=== PATIENT | male | born 1995 | race Caucasian/White ===

== ENCOUNTER 2024-12-15 08:20 | Emergency (ER) | payer OTHER, SELFPAY ==
[2024-12-15] VITALS (10 sets, daily range): BP systolic 121–127; BP diastolic 64–91; PULSE 55–86; RESP 16; TEMP 36.4; O2SAT 98–100; BMI 26.9
--- NOTE | 2024-12-15 08:42 | CRLHL7_ITS ---
For Patients: As a result of the Century Cures Act, medical imaging exams and procedure reports are released immediately into your electronic medical record. You may view this report before your referring provider. If you have questions, please contact your health care provider. INDICATION: Diffuse abdominal pain for the last 2 weeks. COMPARISON: None. TECHNIQUE: CT abdomen and pelvis with intravenous contrast; coronal and sagittal reformats; maximum intensity projections; 90 cc of Isovue-370 contrast was injected IV. FINDINGS: No nodules thru the lung bases. No evidence of pleural effusion. No focal hepatic or splenic pathology. No pancreatic pathology. Gallbladder is unremarkable. No adrenal pathology. No kidney stones or obstructive uropathy. No retroperitoneal lymphadenopathy. No evidence of abdominal or pelvic ascites. Normal appendix. CT of the pelvis is unremarkable. IMPRESSION: Negative CT abdomen and pelvis with intravenous contrast. Please note that all CT scans at this facility use dose modulation, iterative reconstruction, and/or weight-based dosing when appropriate to reduce radiation dose to as low as reasonably achievable. Dictated by Sarah Rocha MD @ 12/15/2024 9:22:03 AM (Electronically Signed)
--- NOTE | 2024-12-15 08:43 | ED_ITS ---
HPI - General Adult General Chief complaint: Abdominal Pain Stated complaint: Abdominal pain Time Seen by Provider: 12/15/24 08:24 History of Present Illness HPI narrative: [age] white male who has had intermittent abdominal discomfort and loose stools of a greenish color for the last couple of weeks. He reports he has about 1 bowel movement a day but is lose he gets cramping around the time of the bowel movement. He has not noticed any blood. He says that could be dark green to [place] green. Patient has had no nausea or vomiting. He has been healthy in the past no chronic health issues. He has not had any fever, chills, night sweats, weight loss. He has been eating and drinking but maybe less so than normal. He has had no chest pain, no breathing problem. He presents to the ED for evaluation. No recent travel. No recent antibiotics. Related Data Home Medications ?Medication ?Instructions ?Recorded ?Confirmed No Known Home Medications 12/15/2411/27 Allergies Allergy/AdvReac Type Severity Reaction Status Date / Time No Known Drug Allergies Allergy Verified 12/15/24 08:35 Review of Systems Status of ROS: Reports: 6 or more systems reviewed and unremarkable except as noted in History and below PFSH PFS Social History Smoking Status: Former smoker What tobacco products do you use: cigarettes Smoking packs per day: 1.5 Smoking cigarettes per day: 30.0 Years smoked: 13 Smoking pack-years: 19.50 Do you use any of these nicotine containing products: Other Second hand tobacco smoke exposure: No How often do you have a drink containing alcohol: 2-4 times a month AUDIT-C Alcohol total score: 2 Non-prescribed substance use: marijuana (any form) service: No Exam Const: Vital Signs, click to edit/add: Vital Signs - 24 hr 12/15/24 08:29 12/15/24 08:51 12/15/24 08:52 Temperature 97.5 F L Pulse Rate 72 67 Pulse Rate [Pulse Oximeter] 86 Respiratory Rate 16 Blood Pressure 127/83 Blood Pressure [Ri ght Upper Arm] 121/72 Pulse Oximetry 98 98 99 Oxygen Delivery Me thod Room Air 12/15/24 09:00 12/15/24 09:40 12/15/24 09:42 Temperature Pulse Rate 63 55 L 62 Pulse Rate [Pulse Oximeter] Respiratory Rate 16 Blood Pressure 125/64 Blood Pressure [Ri ght Upper Arm] Pulse Oximetry 100 98 98 Oxygen Delivery Me thod 12/15/24 09:45 12/15/24 10:00 12/15/24 10:02 Temperature Pulse Rate 57 L 64 59 L Pulse Rate [Pulse Oximeter] Respiratory Rate Blood Pressure 125/91 H Blood Pressure [Ri ght Upper Arm] Pulse Oximetry 99 99 99 Oxygen Delivery Me thod 12/15/24 10:15 Temperature Pulse Rate 69 Pulse Rate [Pulse Oximeter] Respiratory Rate Blood Pressure Blood Pressure [Ri ght Upper Arm] Pulse Oximetry 99 Oxygen Delivery Me thod Course Vital Signs Vital signs: Initial Vital Signs Temperature 97.5 F L 12/15/24 08:29 Temperature Source Temporal Artery Scan 12/15/24 08:29 Pulse Rate 86 12/15/24 08:29 Pulse Rhythm Regular 12/15/24 08:29 Respiratory Rate 16 12/15/24 08:29 Blood Pressure 121/72 12/15/24 08:29 Blood Pressure Mean 88 12/15/24 08:29 Blood Pressure Position Sitting 12/15/24 08:29 Pulse Oximetry 98 12/15/24 08:29 Oxygen Delivery Method Room Air 12/15/24 08:29 Vital Signs Temperature 97.5 F L 12/15/24 08:29 Pulse Rate 86 12/15/24 08:29 Respiratory Rate 16 12/15/24 08:29 Blood Pressure 121/72 12/15/24 08:29 Pulse Oximetry 98 12/15/24 08:29 Oxygen Delivery Method Room Air 12/15/24 08:29 Temperature 97.5 F L 12/15/24 08:29 Pulse Rate 69 12/15/24 10:15 Respiratory Rate 16 12/15/24 09:42 Blood Pressure 125/91 H 12/15/24 10:02 Pulse Oximetry 99 12/15/24 10:15 Oxygen Delivery Method Room Air 12/15/24 08:29 Medications Administered Medications: Discontinued Medications Generic Name Dose Route Start Last Admin Trade Name Freq PRN Reason Stop Dose Admin Sodium Chloride 1,000 mls @ 6,000 mls/hr 12/15/24 08:45 12/15/24 08:56 0.9 % Sodium Chloride 1000 Ml IV 12/15/24 08:54 6,000 mls/hr .Q10M [facility] Administration Medical Decision Making [facility] Narrative Medical decision making narrative: [age] white male with 2 week history of intermittent abdominal cramping and diarrhea, abnormal colored stools and of green color. At this point I think would be hollins to get lab studies, give him IV fluid. Will also check stool culture, O&P, C diff. if he can not leave the samples here will collect them at home. Will rehydrate him. Will get a CT scan of his abdomen pelvis. This would be to rule out diverticulitis, colitis, inflammatory bowel disease. Patient has had no abdominal surgery. He has had no recent travel. No recent antibiotics. Would recommend the above-mentioned treatment course and disposition pending findings. Addendum 10:15 a.m.: The patient is blood work looks reassuring, his CT scan of the abdomen pelvis showed no abnormality, specifically no pancreatitis. His lab studies are reassuring other than his amylase is minimally elevated and his lipase is 1991. I suspect that is from an enteritis. This is as his pancreas looks normal and a CT. I think could be appropriate to hydrate him as we did, collect stool for O and P, culture, C diff. light activity, yogurt by mouth to eat, Tylenol Advil as needed. Recheck with his regular doctor next 2-3 days. Light duty in the interim. Lab Data Labs: Lab Results 12/15/24 Range/Units 09:00 WBC 6.93 (4.50-11.00) K/uL RBC 5.13 (4.30-5.90) m/uL Hgb 15.4 (13.5-17.5) gm/dL Hct 45.9 (37.0-53.0) % MCV 90 (80-100) fL MCH 30 (26-34) pg MCHC 34 (32-36) gm/dL RDW Coeff of Kalia 12.4 (11.5-15.5) % Plt Count 175 (140-440) K/uL Neut % (Auto) 56.3 (42.0-72.0) % Lymph % (Auto) 20.9 (20-44) % [place] % (Auto) 7.5 (0.0-11.0) % Eos % (Auto) 14.3 H (0.0-7.0) % Baso % (Auto) 0.9 (0.0-3.0) % Neut # (Auto) 3.90 (1.7-7.0) K/uL Lymph # (Auto) 1.45 (0.90-2.90) K/uL [place] # (Auto) 0.50 (0.00-0.90) K/UL Eos # (Auto) 1.00 H (0.00-0.50) K/uL Baso # (Auto) 0.06 (0.00-0.30) K/uL Abs Immat Gran (auto) 0.01 (0.00-0.30) K/uL Imm/Tot Granulo (auto) 0.1 % Sodium 136 (135-149) mmol/L Potassium 3.9 (3.6-5.1) mmol/L Chloride 103 (96-114) mmol/L Carbon Dioxide 27 (20-32) mmol/L Anion Gap 6 L (7-15) mEq/L BUN 23 (5-24) mg/dL Creatinine 1.1 (0.5-1.5) mg/dL Estimated Creat Clear 97.30 Estimated GFR 92 ml/min Glucose 104 (60-115) mg/dL Lactate 1.0 (0.5-1.9) mmol/L Calcium 9.2 (8.4-10.6) mg/dL Total Bilirubin 0.3 (0.1-1.5) mg/dL Direct Bilirubin 0.1 (0.0-0.5) mg/dL AST 28 (12-35) U/L ALT 14 (4-50) U/L Alkaline Phosphatase 31 L (40-150) U/L C-Reactive Protein < 0.5 L (0.5-1.0) mg/dL Total Protein 6.8 (6.0-8.3) g/dL Albumin 4.2 (3.3-5.0) g/dL Amylase 125 H (18-89) U/L Lipase 1991 H (23-300) U/L Discharge Plan Discharge Clinical Impression: Diarrhea, Abdominal cramping Patient Disposition: Home, Self-Care Condition: Improved Additional Instructions: Recommend light activity for a couple of days, eat yogurt regularly as well as normal diet, collect the stool samples at home and bring them back to the hospital lab. Recheck with your regular doctor next 2-3 days, return to the ED sooner problems or concerns. Activity Level: Light activity Activity Detail: Light activity for 2 days Discharge Diet: Regular Prescriptions: No Action No Known Home Medications Follow Up/Referrals: Torrey Aguayo MD [Primary Care Provider, Internal Medicine] Stand Alone Forms: [employer] Info Instructions
[2024-12-15 09:12] LABS: Hematocrit* 45.9 % (37.0-53.0); Hemoglobin* 15.4 gm/dL (13.5-17.5); Immature Granulocytes Abs Auto 0.01 K/uL (0.00-0.30); Immature Granulocytes Pct Auto 0.1 %; Lymphocytes Absolute Auto 1.45 K/uL (0.90-2.90); Mean Corpuscular HGB Conc 34 gm/dL (32-36); Mean Corpuscular Hemoglobin 30 pg (26-34); Mean Corpuscular Volume 90 fL (80-100); RDW Coefficient of Variation % 12.4 % (11.5-15.5); Red Blood Count* 5.13 m/uL (4.30-5.90); White Blood Count* 6.93 K/uL (4.50-11.00)
[2024-12-15 09:13] LABS: Lactate* 1.0 mmol/L (0.5-1.9)
[2024-12-15 09:14] LABS: Slide Review Reflex No
[2024-12-15 09:29] LABS: Albumin* 4.2 g/dL (3.3-5.0); Chloride* 103 mmol/L (96-114); Potassium* 3.9 mmol/L (3.6-5.1); Sodium* 136 mmol/L (135-149)
[2024-12-15 09:32] LABS: Alanine Aminotransferase* 14 U/L (4-50); Alkaline Phosphatase* 31 U/L (40-150); Anion Gap 6 mEq/L (7-15); Aspartate Amino Transferase* 28 U/L (12-35); Bilirubin Direct* 0.1 mg/dL (0.0-0.5); Bilirubin Total* 0.3 mg/dL (0.1-1.5); Blood Urea Nitrogen* 23 mg/dL (5-24); Calcium* 9.2 mg/dL (8.4-10.6); Carbon Dioxide* 27 mmol/L (20-32); Creatinine* 1.1 mg/dL (0.5-1.5); Est. Creatinine Clearance* 97.30; Estimated Glomerular Filt Rate 92 ml/min; Glucose* 104 mg/dL (60-115); Total Protein* 6.8 g/dL (6.0-8.3)
[2024-12-15 12:12] LABS: C.Difficile Negative (Negative); CDIFFEPI 027 PRESUMPTIVE NEGATIVE (Negative)
[2024-12-19 00:28] LABS: Ova and Parasite, Fecal Negative (Negative)
== END 2024-12-15 10:26 | disposition home or self-care (01) ==
PROVIDERS: Emergency Provider Family Medicine; PCP Internal Medicine
DX: R10.9 Unspecified abdominal pain (principal); R19.7 Diarrhea, unspecified
CPT/HCPCS: 36415; 74177; 80048; 80076; 82150; 83605; 83690; 83789; 85025; 86140; 87045; 87046; 87177; 87209; 87427; 87493; 99284; 99285; J7030; Q9967

== ENCOUNTER 2025-01-07 10:58 | Outpatient (CLI) | payer OTHER, SELFPAY | END 2025-01-07 10:59 | disposition home or self-care (01) | PROVIDERS: PCP Internal Medicine; Visit Provider Internal Medicine | DX: E78.5 Hyperlipidemia, unspecified (principal) | CPT/HCPCS: 80053; 80061; 83690 ==

== ENCOUNTER 2025-02-10 10:36 | Outpatient (CLI) | payer OTHER, SELFPAY ==
--- NOTE | 2025-02-10 10:45 | CRLHL7_ITS ---
For Patients: As a result of the Century Cures Act, medical imaging exams and procedure reports are released immediately into your electronic medical record. You may view this report before your referring provider. If you have questions, please contact your health care provider. INDICATION: UNSPECIFIED ABDOMINAL PAIN COMPARISON: CT 12/15/2024 TECHNIQUE: Real time salguero scale imaging and color Doppler analysis was performed of the right upper quadrant. FINDINGS: The patient`s liver is of normal size and has mildly coarsened echogenicity. There is a normal appearance of the hepatic IVC and proximal abdominal aorta. There is no evidence of ascites. The gallbladder is of normal size and there is no evidence of intraluminal stones or sludge. The gallbladder wall measures 1 mm in thickness. The common bile duct is of normal size and measures 3 mm in diameter at the level of the xenia hepatis. The pancreas appears normal. There is no evidence of a stone or hydronephrosis within the right kidney. The right kidney measures 10.1 cm in length. IMPRESSION: Mild hepatic steatosis. Remainder unremarkable. Dictated by Aftab Rivera MD @ 02/10/2025 12:16:30 PM (Electronically Signed)
== END 2025-02-10 10:37 | disposition home or self-care (01) ==
LOC: US 10:37
PROVIDERS: PCP Internal Medicine; Visit Provider Internal Medicine
DX: R10.9 Unspecified abdominal pain (principal); K76.0 Fatty (change of) liver, not elsewhere classified
CPT/HCPCS: 76705